=== PATIENT | male | born 1930 | race Caucasian/White ===

== ENCOUNTER 2018-05-13 19:55 | Inpatient (IN) | payer MEDICARE, OTHER ==
[~2018-05-13] VITALS: Ht 195.6 cm; Wt 98.2 kg
--- NOTE | ~2018-05-13 | CON ---
[address] [address] CONSULTATION Name: ELYSSA GAYLE Room: [address] IN M.R.#: [id number] Admission: 05/13/18 Attend Phys: Jamari Garcia MD Discharge: Date of : 34 Report #: [id number] THIS REPORT FOR: //name// CC: Dr. Chloe Garcia DATE OF SERVICE: 05/14/2018 CONSULTATION: Infectious diseases. HISTORY OF PRESENT ILLNESS: The patient is an 88-year-old white male who was admitted to [facility] on 05/13 complaining of cough, congestion, and shortness of breath. The patient has a history of asthma and COPD. He was hospitalized at [facility] on 05/08 through 05/10 with similar symptoms. He was diagnosed with a viral respiratory infection. Respiratory viral panel was positive for coronavirus. He was not given any antibiotic therapy. He was treated with steroids and discharged. In this setting, the patient became ill and returned to the hospital and comes to [place]. The patient had a bronchoscopy in [facility] last year that grew Harriet and Aspergillus. The patient relates that the doctors felt these fungi did not require specific treatment. 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 PAST SURGICAL HISTORY: He has had surgery on both knees and had a craniotomy for intracranial hemorrhage. ALLERGIES: The patient notes allergy to PENICILLIN. MEDICATION RECONCILIATION: The patient's current medications are as follows: Levaquin 500 mg IV daily, montelukast 10 mg at bedtime, enoxaparin 40 mg at bedtime, metformin 1 g b.i.d., prednisone 40 mg daily, B12 500 mcg daily, Lortab 5 mg 1 tab q. p.r.n. pain, carvedilol 25 mg b.i.d., vitamin D 1000 units daily, glucosamine 1000 mg daily, donepezil 10 mg daily, digoxin 0.125 mg daily, aspirin 325 mg daily, pantoprazole 40 mg daily, hydralazine 10 mg q. 6 IV p.r.n. hypertension, Zofran 4 mg q. IV p.r.n. nausea, docusate 100 mg daily, MiraLax 17 grams daily p.r.n., Tylenol p.r.n., insulin sliding scale, DuoNeb aerosol q.i.d. and p.r.n. FAMILY HISTORY: Noncontributory. SOCIAL HISTORY: The patient is . 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 He smokes cigarettes intensely for 4 years and quit 52 years ago. He estimates his alcohol consumption as one glass of wine daily. REVIEW OF SYSTEMS: At this time, the patient feels pretty close to his baseline. He was not complaining of fevers, chills, sweats. He did have weakness and malaise. The patient denies any sinus congestion. He has upper respiratory congestion with productive cough and shortness of breath. This has pretty much improved. The patient denies angina, syncope, palpitations. No pleurisy or other pain in the chest. He did have dyspnea and this is much improved, although he is now on low flow oxygen. The patient denies nausea, vomiting, diarrhea or constipation. His urinary system is doing well. No pain in his extremities. PHYSICAL EXAMINATION: GENERAL: The patient appears alert, oriented, comfortable, and pleasant, not in any distress on low flow oxygen. VITAL SIGNS: Normal. The patient is afebrile, blood pressure 122/58. His pulse is 97. SKIN: Shows no rash, lesion or exanthem. The patient does not appear cushingoid. ENT: Negative. HEART: Sounds S1, S2. Regular rate and rhythm. CHEST: Breath sounds show scattered wheezes. The patient would cough when he would have to take a deep breath. ABDOMEN: The patient's belly was thin, soft, not tender. No mass, no organomegaly. EXTREMITIES: Unremarkable. LABORATORY DATA: White count is 14,000, hemoglobin 13.8, platelets 177,000. Electrolytes normal. BUN 23, creatinine 1.4, glucose was 401. Lactate was 4.6 in the ER and down to 3.4 this morning. Influenza nasal swab was negative. Blood cultures times 2 are pending. Chest x-ray shows basal infiltrates or atelectasis bilaterally. ASSESSMENT AND PLAN: In summary, the patient with chronic obstructive pulmonary disease, asthma, and a past history of Aspergillus. His doctors at [facility] felt this was not causing active disease and was not under treatment. Most recently, he had exacerbation of his pulmonary symptoms, was thought to have a viral respiratory infection, is treated just with steroids for the asthmatic component. Despite this, the patient comes to the hospital with cough and congestion, but responds quickly to increase of steroids and aerosol treatments. He now is just about baseline. It is difficult to try to parse out acute illness, subacute illness, and chronic illness in this patient. It is possible that the Aspergillus may be a factor in the patient's recurring dyspnea and he may benefit from medication. Some of the [address] [address] CONSULTATION Name: ELYSSA GAYLE Room: [address] IN [facility].#: [id number] Admission: 05/13/18 Attend Phys: Jamari Garcia MD Discharge: Date of : 32 Report #: [id number] newer medicines such as voriconazole and posaconazole are generally very well tolerated and potent. They are expensive, so insurance authorization may be a factor. There also are a lot of drug interactions, particularly with some of the cardiac medications. The decision to initiate antifungal therapy should not be taken lightly. I think we should coordinate with the patient's employee services manager, Dr. Cordoba at [facility] to see if this is a reasonable thing to do in light of his 2 recent hospitalizations. We can check sputum for routine and fungus culture, as well as check urinary antigens for legionella and pneumococcus. For now, we can continue the patient on Levaquin, bronchodilators, steroids, and oxygen therapy. I appreciate the opportunity of input in the care of this pleasant gentleman. Dr. Sotomayor will assume care tomorrow from the infectious disease perspective. Thank you for this consult. By: [id number] Lillian Holland MD /lori
[~2018-05-13 19:55] MED LIST: ADVAIR INH; AMANTADINE100 M1 PO; ANORO ELLIPTA1 EACH IH; ARICEPT10 M1 PO; ASPIRIN325 PO; CENTRUM SILVER1 EAC2 PO; COREG25 MG PO; DIGOXIN125 MCG PO; GLUCOSAMINE HC500 MG PO; HYDROCODONE-AP1 EAC6 PO; JANUVIA100 MG PO; METFORMIN HCL500 MG PO; NITROSTAT0.3 MG SL; VENTOLIN HFA 1818 GM INH; VITAMIN D3400 UNIT PO; ZOCOR 10 MG TAB10 M1 PO
[2018-05-13 20:04] VITALS: BP 122/86
[2018-05-13] MEDS ORDERED: SINGULAIR 10 MG10 M1 PO (20:12)
[2018-05-13] MEDS ORDERED: DYMISTA NASAL S23 GM NASAL (20:14)
[2018-05-13] MEDS ORDERED: ANORO ELLIPTA1 EACH INH (20:15)
[2018-05-13 20:31] LABS: HEMATOCRIT 41.7 % (42.0-52.0); HEMOGLOBIN 13.8 gm/dL (14.0-18.0); MCH 31.3 pg (26.0-34.0); MCV 94.8 fL (80.0-100.0); NUCLEATED RBCS 0 /100WBC; PLATELET COUNT* 177 thou/uL (150-400); RDW-CV 14.7 % (10.5-14.5)
[2018-05-13 20:39] LABS: CREATININE 1.4 mg/dL (0.6-1.3)
[2018-05-13 20:43] LABS: ALBUMIN 3.1 g/dL (3.4-5.0); TOTAL BILIRUBIN 0.6 mg/dL (<0.1-1.0); TOTAL PROTEIN 6.8 g/dL (6.4-8.2)
[2018-05-13 20:47] LABS: ABSOLUTE LYMPHOCYTES 0.8 thou/uL (0.8-5.3); ABSOLUTE MONOCYTES 0.7 thou/uL (0.0-1.2); ABSOLUTE NEUTROPHILS 12.5 thou/uL (1.6-8.1); ATYPICAL LYMPHS 2 %; PLATELET ESTIMATE ADEQUATE
[2018-05-13 21:13] LABS: URINE BILIRUBIN NEGATIVE (Negative); URINE BLOOD NEGATIVE (Negative); URINE CLARITY CLEAR; URINE COLOR YELLOW; URINE GLUCOSE-RANDOM 3+ (Negative); URINE KETONES NEGATIVE (Negative); URINE LEUKOCYTES-REFLEX NEGATIVE (Negative); URINE NITRITE-REFLEX NEGATIVE (Negative); URINE PROTEIN NEGATIVE (Negative); URINE SPECIFIC GRAVITY >= 1.030 (1.005-1.030); URINE UROBILINOGEN 0.2 E.U./dl (0.2-1.0)
[2018-05-14] VITALS (7 sets, daily range): BP systolic 108–141; BP diastolic 58–83
--- NOTE | 2018-05-14 10:23 | NUR ---
BREAKFAST TRAY GIVEN TO PATIENT, PT ATE AND DRANK EVERYTHING ON TRAY.
--- NOTE | 2018-05-14 10:40 | NUR ---
PT REPORTS THAT HIS RIGHT HEARING AID IS MISSING. THIS NURSE LOOKED THROUGH THE PT'S SHEETS, CLOTHES AND THROUGHOUT THE PT'S HOSPITAL BED. NO HEARING AID FOUND. SECURITY AND CHIEF MEDICAL DIRECTOR NOTIFIED.
--- NOTE | 2018-05-14 11:12 | NUR ---
PT FOUND MISSING HEARING AID INSIDE HIS GOWN.
[2018-05-14] MEDS ORDERED: VENTOLIN HFA 1818 GM INH (14:01)
[2018-05-14] MEDS ORDERED: FISH OIL 1,2001 EAC3 PO (14:03)
[2018-05-14] MEDS ORDERED: VITAMIN B-12500 MCG PO (14:04)
[2018-05-14 14:45] LABS: INFLUENZA A ANTIGEN None Detected (None Detect); INFLUENZA B ANTIGEN None Detected (None Detect)
--- NOTE | 2018-05-14 19:26 | NUR ---
PT ARRIVED TO UNIT AT 1305, CRDIAC MONITOR PLACED TRACING AFIB, O2 AT 3LPM. PT IS A&O X4, UP WITH ASSIST X1 AND WALKER. SEPSIS SCREEN COMPLETED AND POSITIVE, DR PENA NOTIFIED, NO NEW ORDERS RECVD. PT CONT OF B&B, STATES HAD BM TODAY. LS COARSE WITH RHONCHI, PRODUCTIVE COUGH, ORDERS FOR SPUTUM COLLECTION. IV IN LEFT FOREARM, SALINE LOCKED, FLUIDS ORDERED TRA 80ML/HR. NO SKIN ISSUES AT THIS TIME, AT BEDSIDE.
--- NOTE | 2018-05-14 20:00 | NUR ---
RECEIVED REPORT AND ASSUMED CARE OF PT, ASSESSMENT COMPLETED. HAVING OCC NON-PROD COUGH. O2 ON AT 2L/NC. STATES HE IS FEELING BETTER BUT STILL ROUGH. TELEMETRY ON SHOWING A-FIB WITH OCC PVC. PT WEARING KNEE HI ANGELICA HOSE. WILL CONT TO MONITOR AND ASSIST NEEDED.
[2018-05-15] VITALS (7 sets, daily range): BP systolic 125–147; BP diastolic 67–92
[2018-05-15 05:31] LABS: ABSOLUTE LYMPHOCYTES 0.7 thou/uL (0.8-5.3); ABSOLUTE MONOCYTES 0.4 thou/uL (0.0-1.2); ABSOLUTE NEUTROPHILS 7.3 thou/uL (1.6-8.1); BASOPHILS 0.3 %; EOSINOPHILS 0.1 %; HEMATOCRIT 36.3 % (42.0-52.0); HEMOGLOBIN 12.4 gm/dL (14.0-18.0); MCH 32.2 pg (26.0-34.0); MCHC 34.2 g/dL (28.0-37.0); MCV 94.1 fL (80.0-100.0); MONOCYTES 4.8 %; MPV 7.9 fl. (7.2-11.1); NUCLEATED RBCS 0 /100WBC; PLATELET COUNT* 144 thou/uL (150-400); POLYS 86.8 %; RBC 3.86 mil/uL (4.50-6.00); RDW-CV 14.4 % (10.5-14.5); WBC 8.4 thou/uL (4.0-11.0)
--- NOTE | 2018-05-15 05:54 | NUR ---
SLEPT WELL TONIGHT. AWAKE THIS AM WATCHING TV. TELEMETRY CONT TO SHOW A-FIB. NO CHANGE IN ASSESSMENT. HS GOALS OF REST AND SAFETY ACHIEVED. HOURLY ROUNDING OBSERVED.
[2018-05-15 06:17] LABS: CREATININE 0.7 mg/dL (0.6-1.3); POTASSIUM 4.2 mmol/L (3.5-5.1)
--- NOTE | 2018-05-15 08:30 | NUR ---
RECEIVED REPORT FROM OBSTETRICS GYN RN. PATIENT IS AXOX4, ASSESSMENT CHARTED. DENIES ANY PAIN OR NAUSEA AT THIS TIME. DOES HAVE SOME SLIGHT SHORTNESS OF AIR BUT HE STATES IT HAS IMPROVED SINCE ADMISSION. ON 2 LITERS NASAL CANULA. FLUIDS INFUSING AT THIS TIME. GOALS ARE TO INCREASE ACTIVITY WITH MINIMAL SHORTNESS OF AIR, WEAN O2 AND ANTIBIOTIC MANAGMENT PER DR MO. BED IN LOWEST POSITON, FALL PRECAUTIONS IN PLACE, NURSING ADMINISTRATOR IN PLACE. CALL LIGHT IN REACH.
--- NOTE | 2018-05-15 15:41 | NUR ---
Pt is A&O. Resides at home with his , in room at bedside. Pt has a walker, cane and wc at home that he can use if needed. No home o2. Pt is independent with ADLs, Pt drives short distances in town, drives longer distances. Pt is current with [facility] and will need resumption orders [place]. No hx of skilled. Goal is home at [place]. Following. [facility] p:[phone] f:[phone]
--- NOTE | 2018-05-15 18:39 | NUR ---
PATIENT HAS NO COMPLAINTS AT THIS TIME, TOLERATED WALKING AROUND THE UNIT WITH WALKER AND 2 LITERS NASAL CANULA. NO NAUSEA OR SHORTNESS OF AIR. FLUIDS D/C, ANTIBIOTICS TO BE GIVEN SCHEDULED. BED IN LOWEST POSITION, CALL LIGHT IN REACH, TELEGRAPH EDITOR IN PLACE, FALL PRECAUTIONS IN PLACE.
[2018-05-16 03:59] VITALS: BP 139/88
[2018-05-16 05:18] LABS: HEMATOCRIT 37.7 % (42.0-52.0); HEMOGLOBIN 12.8 gm/dL (14.0-18.0); MCH 31.6 pg (26.0-34.0); MPV 7.8 fl. (7.2-11.1); NUCLEATED RBCS 0 /100WBC; PLATELET COUNT* 161 thou/uL (150-400); RBC 4.05 mil/uL (4.50-6.00); RDW-CV 14.6 % (10.5-14.5); WBC 8.5 thou/uL (4.0-11.0)
--- NOTE | 2018-05-16 05:30 | NUR ---
ASSUMED PT CARE AT 1915. NURSING ASSESSMENT COMPLETED AT START OF SHIFT. PT CONTINUES ON 2L O2 VIA NC. AFIB ON GERIATRIC PHYSICAL THERAPIST. VSS. DENIES PAIN THIS SHIFT. HOURLY ROUNDING COMPLETED. CALL LIGHT WITHIN REACH.
[2018-05-16 05:31] LABS: CALCIUM 8.2 mg/dL (8.5-10.1); CREATININE 0.8 mg/dL (0.6-1.3); POTASSIUM 3.8 mmol/L (3.5-5.1)
[2018-05-16 05:41] LABS: ABSOLUTE LYMPHOCYTES 1.7 thou/uL (0.8-5.3); ABSOLUTE MONOCYTES 0.2 thou/uL (0.0-1.2); ABSOLUTE NEUTROPHILS 6.6 thou/uL (1.6-8.1); ANISOCYTOSIS 1+; PLATELET ESTIMATE ADEQUATE; POIKILOCYTOSIS 1+
[2018-05-16 08:00] VITALS: BP 145/81
[2018-05-16 12:00] VITALS: BP 113/77
[2018-05-16 16:59] VITALS: BP 134/79
--- NOTE | 2018-05-16 17:58 | NUR ---
PT VSS THIS SHIFT. PT TOLERATING DIET, O2 AT 2L PER NC, IV ABX THERAPY, AND HAS NO C/O PAIN THIS SHIFT. PT HAS HAD INCREASED BLOOD SUGARS THIS SHIFT WHICH IS TO BE EXPECTED DUE TO DM DIAGNOSIS AND STERIOD USE. PT STATES HE WANTS TO TAKE O2 HOME WITH HIM FOR COMFORT USE BONI, , RT, AND CM NOTIFIED REGARDING THIS REQUEST. PT UP WITH 1 WITH A WALKER AND HAS A STEADY GAIT AT THIS TIME. PT MANAGES DM WELL AT HOME AND STATED HE DOES NOT USE INSULIN AT HOME UNLESS HIS BLOOD SUGAR IS GREATER THAN 200, PT AGREEABLE TO INSULIN USE ONCE EXPLAINED THE EFFECTS OF STERIODS AND THE IMPACT THAT THEY HAVE ON BLOOD SUGAR. PT STABLE WITH A FIB ON THE MONITOR THIS SHIFT. HOURLY ROUNDING MAINTAINED THIS SHIFT.
[2018-05-16 21:30] VITALS: BP 117/54
[2018-05-17] VITALS: BP 124/77
[2018-05-17 08:10] VITALS: BP 141/88
--- NOTE | 2018-05-17 08:23 | NUR ---
Pt a/o x4, on O2 2L NC. On sleep study during this pulp tester. VSS. Denies pain or any other discomfort. Adequate UOP. No apparent distress noted.
[2018-05-17 08:26] LABS: HEMATOCRIT 42.3 % (42.0-52.0); HEMOGLOBIN 14.1 gm/dL (14.0-18.0); MCH 31.5 pg (26.0-34.0); MCHC 33.4 g/dL (28.0-37.0); MCV 94.3 fL (80.0-100.0); MPV 7.8 fl. (7.2-11.1); RBC 4.49 mil/uL (4.50-6.00); RDW-CV 14.6 % (10.5-14.5); WBC 9.6 thou/uL (4.0-11.0)
[2018-05-17 08:28] LABS: CALCIUM 8.5 mg/dL (8.5-10.1); CREATININE 0.9 mg/dL (0.6-1.3); MAGNESIUM 1.6 mg/dL (1.8-2.4); POTASSIUM 4.1 mmol/L (3.5-5.1)
--- NOTE | 2018-05-17 10:38 | NUR ---
RECEIVED REPORT FROM LOGAN AND ASSUMED CARE OF PT @ 1716.PT IS A/O X4,VSS,TRACING AFIB ON THE MONITOR.ASSESSMENT CHARTED.IV PATENT AND SALINE LOCKED.PT IS CALM AND COOPERATIVE WITH NO C/O PAIN.PT IS UP WITH SBA ASSIST.PT LEFT RESTING IN BED WITH CALL LIGHT AND FALL PRECAUTIONS IN PLACE.WILL CONTINUE TO MONITOR.
[2018-05-17] MEDS ORDERED: LEVAQUIN 750 M750 MG PO (11:22)
[2018-05-17] MEDS ORDERED: PREDNISONE 10 M10 MG PO (11:22)
[2018-05-17] MEDS ORDERED: ADVAIR HFA 230M12 GM INH (11:22)
[2018-05-17 12:00] VITALS: BP 112/88
[2018-05-17 15:28] VITALS: BP 112/88
--- NOTE | 2018-05-17 16:05 | NUR ---
Pt discharging to home today, faxed dc orders to [facility]. Pt had overnight ox last night, per RT printer is down and they are unable to print the report, waiting for RT to read the report to determine if Pt qualifies. CM will arrange home o2 pending overnight ox results. in room and will transport home.
--- NOTE | 2018-05-17 16:54 | NUR ---
PT OK FOR DISCHARGE.DISCHARGE PAPERWORK COMPELTED AND GIVEN TO PT.SCRIPTS GIVEN WITH EDUCATION.IV REMOVED.HEART MONITOR REMOVED AND RETURNED TO NURSING STATION.ALL PERSONAL BELONGINGS PACKED AND TAKEN WITH PT.PT WHEELED OUT BY NURSING STAFF TO PERSONAL VEHICLE.
--- NOTE | 2018-05-18 11:34 | NUR ---
CM faxed order to Luli at [facility] to schedule an outpt overnight oximetry.
== END 2018-05-17 16:45 | disposition home health service (06) | DRG 871 ==
LOC: M.ERS 19:55 → M.2W 21:50 → M.TBA-ER 21:50 → M.2W 05-14 13:04
PROVIDERS: Emergency Medicine; Internal Medicine; Physician Assistant; ADMIT Family Medicine
DX: A41.9 Sepsis, unspecified organism (principal); J69.0 Pneumonitis due to inhalation of food and vomit; J96.21 Acute and chronic respiratory failure with hypoxia; N17.9 Acute kidney failure, unspecified; B44.9 Aspergillosis, unspecified; J44.1 Chronic obstructive pulmonary disease with (acute) exacerbation; E11.65 Type 2 diabetes mellitus with hyperglycemia; E78.5 Hyperlipidemia, unspecified; I48.91 Unspecified atrial fibrillation; Z86.73 Personal history of transient ischemic attack (TIA), and cerebral infarction without residual deficits; Z79.1 Long term (current) use of non-steroidal anti-inflammatories (NSAID); Z79.899 Other long term (current) drug therapy; Z88.0 Allergy status to penicillin; Z88.8 Allergy status to other drugs, medicaments and biological substances; Z88.4 Allergy status to anesthetic agent; Z87.891 Personal history of nicotine dependence; Z85.51 Personal history of malignant neoplasm of bladder

== ENCOUNTER 2018-11-01 18:24 | Emergency (ER) | payer MEDICARE, OTHER ==
[~2018-11-01] VITALS: Ht 195.6 cm; Wt 102.5 kg
[~2018-11-01 18:24] MED LIST changes: +ADVAIR HFA 230M12 GM INH; +ANORO ELLIPTA1 EACH INH; +DYMISTA NASAL S23 GM NASAL; +FISH OIL 1,2001 EAC3 PO; +LEVAQUIN 750 M750 MG PO; +PREDNISONE 10 M10 MG PO; +SINGULAIR 10 MG10 M1 PO; +VITAMIN B-12500 MCG PO
[2018-11-01 18:48] LABS: ABSOLUTE EOSINOPHILS 0.2 thou/uL (0.0-0.7); ABSOLUTE LYMPHOCYTES 1.3 thou/uL (0.8-5.3); ABSOLUTE MONOCYTES 0.5 thou/uL (0.0-1.2); ABSOLUTE NEUTROPHILS 3.5 thou/uL (1.6-8.1); BASOPHILS 0.7 %; EOSINOPHILS 3.7 %; HEMATOCRIT 38.4 % (42.0-52.0); HEMOGLOBIN 12.9 gm/dL (14.0-18.0); LYMPHOCYTES 23.9 %; MCHC 33.5 g/dL (28.0-37.0); MCV 92.6 fL (80.0-100.0); MPV 8.1 fl. (7.2-11.1); NUCLEATED RBCS 0 /100WBC; PLATELET COUNT* 133 thou/uL (150-400); POLYS 62.7 %; RBC 4.15 mil/uL (4.50-6.00); RDW-CV 16.2 % (10.5-14.5); WBC 5.6 thou/uL (4.0-11.0)
[2018-11-01 19:01] LABS: ANION GAP 9 mmol/L (7-16); BUN 15 mg/dL (7-18); CHLORIDE 105 mmol/L (98-107); CO2 32 mmol/L (21-32); CREATININE 0.9 mg/dL (0.6-1.3); GLUCOSE 151 mg/dL (70-99); POTASSIUM 3.8 mmol/L (3.5-5.1); SODIUM 146 mmol/L (136-145)
[2018-11-01 19:10] LABS: ALBUMIN 3.6 g/dL (3.4-5.0); ALKALINE PHOSPHATASE 95 U/L (46-116); SGOT 17 U/L (15-37); SGPT 24 U/L (30-65); TOTAL BILIRUBIN 0.9 mg/dL (<0.1-1.0); TOTAL PROTEIN 6.8 g/dL (6.4-8.2); TROPONIN-I LEVEL <0.06 ng/mL (<0.06)
[2018-11-01] MEDS ORDERED: KEFLEX500 M1 PO (21:07)
[2018-11-01] MEDS ORDERED: ACETAMINOPHEN-1 EAC1 PO (21:07)
[2018-11-01 21:38] VITALS: BP 139/85
== END 2018-11-01 21:39 | disposition home or self-care (01) ==
LOC: M.ERS 18:24
PROVIDERS: Physician Assistant
DX: S02.2XXA Fracture of nasal bones, initial encounter for closed fracture (principal); S00.83XA Contusion of other part of head, initial encounter; J32.1 Chronic frontal sinusitis; J32.0 Chronic maxillary sinusitis; E11.9 Type 2 diabetes mellitus without complications; I48.91 Unspecified atrial fibrillation; J44.9 Chronic obstructive pulmonary disease, unspecified; Z85.51 Personal history of malignant neoplasm of bladder; Z86.73 Personal history of transient ischemic attack (TIA), and cerebral infarction without residual deficits; Z96.651 Presence of right artificial knee joint; Z88.1 Allergy status to other antibiotic agents; Z88.0 Allergy status to penicillin; Z91.041 Radiographic dye allergy status; Z88.8 Allergy status to other drugs, medicaments and biological substances; W01.0XXA Fall on same level from slipping, tripping and stumbling without subsequent striking against object, initial encounter; Y93.89 Activity, other specified; Y92.89 Other specified places as the place of occurrence of the external cause; Y99.8 Other external cause status